=== PATIENT | male | born 1980 | race Caucasian/White ===

== ENCOUNTER → 2019-01-07 | Outpatient (CLI) | payer OTHER ==
[~2019-01-07] MED LIST: IOHEXOL 300 MG/ML 75 ML VIAL. IV ONE
--- NOTE | 2019-01-07 16:47 | RAD ---
Examination: CT maxillofacial with IV contrast HISTORY: History of facial pain COMPARISON: None available TECHNIQUE: Axial CT images of the maxillofacial was performed with IV contrast. Coronal and sagittal reformats are performed. Exposure: One or more of the following individualized dose reduction techniques were utilized for this examination: 1. Automated exposure control 2. Adjustment of the mA and/or kV according to patient size 3. Use of iterative reconstruction technique FINDINGS: The bilateral orbital globes appear intact. The visualized intracranial portion grossly appears unremarkable. The bilateral mastoid air cells, sinuses are clear. Small cervical lymph nodes identified in the left the largest measuring 1.1 cm. No evidence of focal fluid collection identified to suggest an abscess. There is questionable fat stranding identified in the subcutaneous region of the face on the right and the left probably physiological or mild edema. IMPRESSION: 1. The visualized paranasal sinuses, mastoid air cells are clear. 2. There is questionable fat stranding identified in the subcutaneous region of the face on the right and the left probably physiological or mild edema. Electronically signed by: Bret Mccarthy MD (01/07/2019 4:43 PM) [place] [id number]
== END | disposition home or self-care (01) ==
LOC: CT 13:45
PROVIDERS: ATTEND Nurse Practitioner Family
DX: R51 Headache (principal); H57.12 Ocular pain, left eye; Z85.828 Personal history of other malignant neoplasm of skin; Z87.891 Personal history of nicotine dependence
CPT/HCPCS: 70487; Q9967